=== PATIENT | female | born 2000 | race American Indian/Alaskan Native ===

== ENCOUNTER 2020-03-24 21:35 | Outpatient (CLI) | payer OTHER ==
[2020-03-24 22:03] VITALS: BP 122/75
[2020-03-24] MEDS ORDERED: LACTATED RINGERS 1,000 ML IV ONE (22:09)
[2020-03-24 22:46] LABS: Bacteria,Urine 1+ /HPF (Negative); Bilirubin,Urine NEG (Negative); Blood,Urine NEG (Negative); Color,Urine Yellow (Yellow); Mucus,Urine FEW /HPF; Protein,Urine <15 mg/dL mg/dL (Negative); Urobilinogen,Urine < 2.0 mg/dL (<2.0)
== END 2020-03-24 23:00 | disposition home or self-care (01) ==
LOC: TRG 21:35 → APU 21:36 → TRG 23:00
PROVIDERS: ATTEND Obstetrics & Gynecology
DX: O26.852 Spotting complicating pregnancy, second trimester (principal); Z3A.27 27 weeks gestation of pregnancy
CPT/HCPCS: 59025; 81001

== ENCOUNTER 2020-03-27 02:51 | Outpatient (CLI) | payer OTHER ==
[2020-03-27 03:23] VITALS: BP 128/79
[2020-03-27] MEDS ORDERED: LACTATED RINGERS 1,000 ML IV ONE ×2 (03:33→05:26)
[2020-03-27 04:52] LABS: Bacteria,Urine 3+ /HPF (Negative); Bilirubin,Urine NEG (Negative); Blood,Urine NEG (Negative); Color,Urine Yellow (Yellow); Mucus,Urine 2+ /HPF; Protein,Urine <15 mg/dL mg/dL (Negative)
[2020-03-27] MEDS ORDERED: ACETAMINOPHEN W/CODEINE 300-30 MG TAB PO ONE (05:29)
[2020-03-27 06:52] LABS: Bacteria,Urine 1+ /HPF (Negative); Bilirubin,Urine NEG (Negative); Blood,Urine NEG (Negative); Color,Urine Yellow (Yellow); Mucus,Urine FEW /HPF; Protein,Urine <15 mg/dL mg/dL (Negative); Urobilinogen,Urine < 2.0 mg/dL (<2.0)
[2020-03-27] MEDS ORDERED: ONDANSETRON 4 MG/2 ML INJ IV NR (08:30)
== END 2020-03-27 08:50 | disposition home or self-care (01) ==
LOC: TRG 02:51 → APU 02:52 → TRG 08:50
PROVIDERS: ATTEND Obstetrics & Gynecology
DX: O26.892 Other specified pregnancy related conditions, second trimester (principal); R10.31 Right lower quadrant pain; O47.02 False labor before 37 completed weeks of gestation, second trimester; Z3A.21 21 weeks gestation of pregnancy
CPT/HCPCS: 59025; 81001; 87086; 96361; 96365; J2405; J7120; 96360